=== PATIENT | female | born 1955 | race Caucasian/White ===

== ENCOUNTER → 2017-01-20 | Emergency (ER) | payer OTHER ==
[~2017-01-20] VITALS: Ht 167.6 cm; Wt 86.2 kg
[~2017-01-20] MED LIST: CITALOPRAM HBR40 MG PO; FOLIC ACID1 MG PO; LEVOTHYROXINE50 MCG PO; METOPROLOL SUCC50 MG PO; VITAMIN D250000 UNIT PO
--- NOTE | 2017-01-21 07:11 | EKG ---
[facility] [address] [facility] [place], [place] [address] Signed Sinus rhythm with premature atrial complexes Otherwise normal ECG No previous ECGs available Confirmed by EBENEZER NI MD ([id number]) on 01/21/2017 7:11:00 AM Electronically Signed By: EBENEZER NI MD 01/21/17710 PATIENT NAME: JESENIA GILMAN Electrocardiogram DATE OF : 57 PHYSICIAN: EBENEZER IN MD REPORT #: [id number] REPORT IS CONFIDENTIAL AND NOT TO BE RELEASED WITHOUT AUTHORIZATION
== END | disposition home or self-care (01) ==
LOC: ED 13:13
DX: I50.9 Heart failure, unspecified (principal); I11.0 Hypertensive heart disease with heart failure; B34.9 Viral infection, unspecified; R09.1 Pleurisy; Z87.891 Personal history of nicotine dependence; E78.00 Pure hypercholesterolemia, unspecified; Z98.51 Tubal ligation status; Z98.890 Other specified postprocedural states
CPT/HCPCS: 71020; 80053; 83880; 84484; 85025; 93005; 93010; 99284

== ENCOUNTER 2018-04-11 16:33 | Emergency (ER) | payer OTHER ==
[~2018-04-11] VITALS: Ht 167.6 cm; Wt 86.2 kg
[2018-04-11] MEDS ORDERED: ATORVASTATIN CA20 MG PO (16:49)
[2018-04-11] MEDS ORDERED: FLUTICASONE PRO16 GM NAS (16:49)
[2018-04-11] MEDS ORDERED: ZESTRIL5 MG PO (19:10)
--- NOTE | 2018-04-12 07:46 | EKG ---
[facility] [address] [facility] [place], [place] [address] Signed Sinus bradycardia Otherwise normal ECG When compared with ECG of 20-JAN-2017 13:20, premature atrial complexes are no longer present Confirmed by EBENEZER NI MD ([id number]) on 04/12/2018 7:46:19 AM Electronically Signed By: EBENEZER NI MD 04/12/18 0746 PATIENT NAME: JESENIA GILMAN Electrocardiogram DATE OF : 57 PHYSICIAN: EBENEZER NI MD REPORT #: [id number] REPORT IS CONFIDENTIAL AND NOT TO BE RELEASED WITHOUT AUTHORIZATION
[2018-04-12] MEDS ORDERED: CATAPRES0.1 MG PO (17:32)
[2018-04-12] MEDS ORDERED: HYDROCHLOROTHIA25 MG PO (17:32)
[2018-04-12] MEDS ORDERED: K-TAB ER20 MEQ PO (17:36)
== END 2018-04-11 19:39 | disposition home or self-care (01) ==
LOC: ED 16:33
DX: I10 Essential (primary) hypertension (principal); E78.00 Pure hypercholesterolemia, unspecified; Z87.01 Personal history of pneumonia (recurrent); Z87.891 Personal history of nicotine dependence; Z90.89 Acquired absence of other organs; Z79.899 Other long term (current) drug therapy
CPT/HCPCS: 80053; 84484; 85025; 93005; 93010; 96374; 96376; 99283-25

== ENCOUNTER 2018-04-12 14:00 | Emergency (ER) | payer OTHER ==
[~2018-04-12] VITALS: Ht 167.6 cm; Wt 86.2 kg
[~2018-04-12 14:00] MED LIST changes: +ATORVASTATIN CA20 MG PO; +FLUTICASONE PRO16 GM NAS; +ZESTRIL5 MG PO
--- OUTSIDE RECORDS SUMMARY | 2018-04-12 14:02 | XMS ---
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 Kathy has no Care Guidelines for this patient. [facility]12 MO.) [facility] T[facility] NOTE: Visits indicate total known visits. ED/[facility] VISIT TRACKING (12 MO.) 04/12/2018 14:01 [facility] TYPE: Emergency COMPLAINT: - NECK PAIN,BLOOD PRESSURE PROBLEM 04/11/2018 16:[address] [facility] TYPE: Emergency COMPLAINT: - BLOOD PRESSURE PROBLEM INPATIENT VISIT TRACKING (12 MO.) No inpatient visits to display in this time frame [email or web address]
[2018-04-12] MEDS ORDERED: CATAPRES0.1 MG PO (17:32)
[2018-04-12] MEDS ORDERED: HYDROCHLOROTHIA25 MG PO (17:32)
[2018-04-12] MEDS ORDERED: K-TAB ER20 MEQ PO (17:36)
== END 2018-04-12 17:44 | disposition home or self-care (01) ==
LOC: ED 14:00
DX: T78.3XXA Angioneurotic edema, initial encounter (principal); T46.4X5A Adverse effect of angiotensin-converting-enzyme inhibitors, initial encounter; I10 Essential (primary) hypertension; E78.00 Pure hypercholesterolemia, unspecified; Z87.01 Personal history of pneumonia (recurrent); Z90.89 Acquired absence of other organs; Z79.899 Other long term (current) drug therapy
CPT/HCPCS: 96374; 96375; 99283-25; J1200; J2930

== ENCOUNTER 2018-06-10 10:41 | Observation (INO) | payer OTHER ==
[~2018-06-10] VITALS: Ht 162.6 cm; Wt 86.2 kg
[~2018-06-10 10:41] MED LIST changes: +CATAPRES0.1 MG PO; +HYDROCHLOROTHIA25 MG PO; +K-TAB ER20 MEQ PO
[2018-06-10] MEDS ORDERED: KEFLEX500 MG PO (12:56)
[2018-06-10] MEDS ORDERED: ONDANSETRON ODT8 MG PO (12:56)
--- NOTE | 2018-06-10 19:05 | NUR ---
BEDSIDE REPORT RECEIVED FROM OFFGOING RN. PT PARTICIPATES IN REPORT. PT ASSISTED TO THE BATHROOM AND BACK TO BED WITH 1 PA. PT TOLERATED WELL. PT REPORTS THAT NAUSEA IS INCREASING. PLAN TO BRING ANTIEMETIC. PT STATES UNDERSTANDING. DENIES FURTHER NEEDS AT THIS TIME. CALL LIGHT IN REACH.
--- NOTE | 2018-06-10 19:08 | EKG ---
[facility] [address] [facility] [place], [place] [address] Signed Normal sinus rhythm Normal ECG When compared with ECG of 11-APR-2018 17:03, No significant change was found Confirmed by GILBERT ESPITIA DO ([id number]) on 06/10/2018 7:08:33 PM Electronically Signed By: GILBERT ESPITIA DO 06/10/18 1908 PATIENT NAME: JESENIA GILMAN Electrocardiogram DATE OF : 57 PHYSICIAN: GILBERT ESPITIA DO REPORT #: [id number] REPORT IS CONFIDENTIAL AND NOT TO BE RELEASED WITHOUT AUTHORIZATION
--- NOTE | 2018-06-10 19:22 | NUR ---
PT ARRIVED TO THE FLOOR AT 1810. PT ABLE TO SELF TRANSFER TO BED. PT REPORTS NAUSEA AFTER THE RIDE DOWN THE ALEGRIA. PT REQUESTED ICE WATER, GIVEN.
--- NOTE | 2018-06-10 20:23 | NUR ---
PT ASSESSMENT COMPLETE. PT DENIES PAIN, NAUSEA, OR SOB. LUNG SOUNDS WITH EXPIRATORY WHEEZES TO L LOBES. PT REPORTS OCC COUGH, WHEEZE DOES NOT CLEAR WITH COUGH. PT STATES THAT SHE HAS BEEN TOLERATING WATER WITHOUT NAUSEA. DENIES FURTHER NEEDS AT THIS TIME. CALL LIGHT AND PERSONAL ITEMS WITHIN REACH. PT EDUCATION PROVIDED REGARDING POC FOR THIS SHIFT. PT STATES UNDERSTANDING.
--- NOTE | 2018-06-10 20:47 | NUR ---
RAPID FLU SWAB OBTAINED AND SENT TO LAB. PT REPORTS IV SITE BURNING. EDUCATION PROVIDED REGARDING KCL INFUSION. PT STATES UNDERSTANDING. ICE PACK PROVIDED. PT DENIES FURTHER NEEDS AT THIS TIME. CALL LIGHT IN REACH.
--- NOTE | 2018-06-11 03:46 | NUR ---
PT RESTING IN BED, LYING ON STOMACH. PT SNORING AUDBILY FROM DOORWAY. 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 PT APPEARS TO BE SLEEPING. CALL LIGHT IN REACH.
--- NOTE | 2018-06-11 06:16 | NUR ---
PT SLEPT WELL THIS SHIFT. NO PAIN OR SOB. NAUSEA WELL CONTROLLED. PT TOLERATED JELLO AND CRACKERS. DROPLET PRECAUTIONS, PT FLU +. PT WITH OCCASIONAL NONPRODUCTIVE COUGH. SBA TO BR. LR @ 125.
--- NOTE | 2018-06-11 06:31 | NUR ---
VS and I&O's were complete.
--- NOTE | 2018-06-11 07:10 | NUR ---
RECIEVED BEDSIDE REPORT FROM KAREEM TOM. PT SLEEPING SOUNDLY, SNORING. AT APPEARS COMFORTABLE.
--- NOTE | 2018-06-11 09:23 | NUR ---
PT STATES SHE FEELS MUCH BETTER. SHE IS READY TO EAT. PT ORDERED BREAKFAST.
[2018-06-11] MEDS ORDERED: LISINOPRIL5 MG PO (10:11)
--- NOTE | 2018-06-11 10:12 | NUR ---
Medications reconciled using pharmacy records and patient interview. Cephalexin and ondansetron RXs given to patient through ED, but then patient was admitted
[2018-06-11] MEDS ORDERED: ZOFRAN4 MG PO (11:25)
[2018-06-11] MEDS ORDERED: PROMETHAZINE HC25 M1 PO (11:27)
--- NOTE | 2018-06-11 14:25 | NUR ---
PATIENT SITTING UP IN BED, IN ROOM. FRESH WATER GIVEN. CALL LIGHT IN REACH. NO FURTHER NEEDS AT THIS TIME.
--- NOTE | 2018-06-11 16:00 | NUR ---
PT IV IS STILL INFUSING. ALMOST DONE.
--- NOTE | 2018-06-11 16:20 | NUR ---
PT'S POTASSIUM IV HAS FINISHED. IV REMOVED. PT IS VOIDING AND GETTING DRESSED.
== END 2018-06-11 16:30 | disposition home or self-care (01) ==
LOC: ED 10:41 → MS 10:43
PROVIDERS: ADMIT Student in an Organized Health Care Education/Training Program
DX: J10.2 Influenza due to other identified influenza virus with gastrointestinal manifestations (principal); I10 Essential (primary) hypertension; E03.9 Hypothyroidism, unspecified; E78.5 Hyperlipidemia, unspecified; E87.6 Hypokalemia; F39 Unspecified mood [affective] disorder; Z88.5 Allergy status to narcotic agent; Z79.51 Long term (current) use of inhaled steroids; Z79.899 Other long term (current) drug therapy
CPT/HCPCS: 36415; 76705; 80053; 81001; 83690; 83735; 83880; 84484; 85025; 87502; 93005; 93010; 96361; 96365; 96366; 96376; 99285-25; G0378; J0780; J2405; J2550; J3480; J7040; J7060; J7120

== ENCOUNTER 2019-04-09 13:32 | Emergency (ER) | payer OTHER ==
[~2019-04-09] VITALS: Ht 160 cm; Wt 90.7 kg
[~2019-04-09 13:32] MED LIST changes: +KEFLEX500 MG PO; +LISINOPRIL5 MG PO; +ONDANSETRON ODT8 MG PO; +PROMETHAZINE HC25 M1 PO; +ZOFRAN4 MG PO
[2019-04-09] MEDS ORDERED: AMLODIPINE BESY10 MG PO (13:53)
== END 2019-04-09 14:04 | disposition home or self-care (01) ==
LOC: ED 13:32
DX: M79.89 Other specified soft tissue disorders (principal)

== ENCOUNTER 2021-04-16 09:48 | Emergency (ER) | payer MEDICARE, OTHER ==
[~2021-04-16] VITALS: Ht 160 cm; Wt 90.7 kg
[~2021-04-16 09:48] MED LIST changes: +AMLODIPINE BESY10 MG PO
[2021-04-16] MEDS ORDERED: CELEXA40 MG PO (10:14)
--- NOTE | 2021-04-18 17:50 | EKG ---
[facility] [address] [facility] [place], [place] [address] Signed Normal sinus rhythm Normal ECG When compared with ECG of 10-JUN-2018 11:34, No significant change was found Confirmed by MARTY MARTINEZ MD ([id number]) on 04/18/2021 5:50:24 PM Electronically Signed By: MARTY MARTINEZ MD 04/18/21 1750 PATIENT NAME: JESENIA GILMAN Electrocardiogram DATE OF : 57 PHYSICIAN: MARTY MARTINEZ MD REPORT #: [id number] REPORT IS CONFIDENTIAL AND NOT TO BE RELEASED WITHOUT AUTHORIZATION
== END 2021-04-16 13:22 | disposition home or self-care (01) ==
LOC: ED 09:48
DX: R10.9 Unspecified abdominal pain (principal); R07.89 Other chest pain; E78.00 Pure hypercholesterolemia, unspecified; I10 Essential (primary) hypertension; R73.03 Prediabetes; Z87.891 Personal history of nicotine dependence; Z88.8 Allergy status to other drugs, medicaments and biological substances; Z79.899 Other long term (current) drug therapy
CPT/HCPCS: 36415; 76705; 80053; 81001; 83690; 84484; 85025; 93005; 93010; 96374; 96375; 99285-25; J1885; J2405; J7030